=== PATIENT | female | born 1990 ===

== ENCOUNTER 2018-04-05 16:34 | Emergency (ER) | payer OTHER, MEDICAID ==
[2018-04-05 16:34] VITALS: BMI 35.7
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
--- NOTE | 2018-04-05 19:14 | ED PDOC ---
- ECG O2 Sat by Pulse Oximetry: 99 Medical Decision Making Medical Decision Makin:00 -Patient endorsed to me by Dr. Phillips pending lumbar CT. 19:[address] FINDINGS: VERTEBRAE: No fracture. DISCS/SPINAL CANAL/NEURAL FORAMINA: Degenerative changes at L4-5 and L5-S1 with disc herniations at both levels as well as spinal stenosis. There are postoperative changes from left hemilaminectomy at L4-5. SOFT TISSUES: Unremarkable. IMPRESSION: Degenerative changes at L4-5 and L5-S1 with disc herniations at both levels as well as spinal stenosis. There are postoperative changes from left hemilaminectomy at L4-5. 21:25 -Reviewed CT and discussed results with patient. Patient states she has her own orthopedist. Upon provider reevaluation patient is feeling better, is medically stable, and requires no further treatment in the ED at this time. Patient will be discharged home. Counseling was provided and all questions were answered regarding diagnosis and need for follow up with PMD and her own orthopedist. There is agreement to discharge plan. Return if symptoms persist or worsen. Disposition - Clinical Impression Clinical Impression: Acute back pain, Spinal stenosis, Degenerative arthritis of spine - POA Present On Arrival: None - Disposition Referrals: Tenzin Salvador MD [Staff Provider] - Disposition: Routine/Home Disposition Time: 21:10 Condition: IMPROVED Additional Instructions: follow up with your primary doctor in 1-2 days and with your orthopedist DR Box as instructed based on your CT findings return to the ED with any worsening or concerning symptoms Instructions: Spinal Stenosis, Upper Back Pain (DC) Forms: [employer] (Turkmen)
[2018-04-05 21:39] VITALS: O2SAT 99
[2018-04-05 22:08] VITALS: BP 110/78; PULSE 78; RESP 18; TEMP 98
--- NOTE | 2018-04-06 14:33 | CT ---
PROCEDURE: CT Lumbar Spine without contrast HISTORY: pain s/p laminectomy COMPARISON: None. TECHNIQUE: Axial computed tomography images were obtained of the lumbar spine without the use of intravenous contrast. Coronal and sagittal reformatted images were created and reviewed. Radiation dose: Total exam DLP = 1346.25 mGy-cm. This CT exam was performed using one or more of the following dose reduction techniques: Automated exposure control, adjustment of the mA and/or kV according to patient size, and/or use of iterative reconstruction technique. FINDINGS: VERTEBRAE: No fracture. Status post left L4 hemilaminotomy. Normal alignment maintained. DISCS/SPINAL CANAL/NEURAL FORAMINA: L1-2: Unremarkable. L2-3: Unremarkable. L3-4: Unremarkable. L4-5: Extensive disc bulge. No focal herniation appreciated. There is central spinal stenosis. There is moderate bilateral neural foraminal stenosis. L5-S1: Minimal disc bulge. Mild disc bulge. No focal herniation. . Bilateral degenerative facet arthropathy. Moderate/severe bilateral neural foraminal stenosis. No central spinal stenosis. PARASPINAL SOFT TISSUES: Postoperative changes in posterior midline subcutaneous soft tissues. No mass or fluid collection appreciated. OTHER FINDINGS: None. IMPRESSION: Expected postoperative changes. Status post left L4 hemilaminotomy. Large disc bulge at L4-5 with bilateral foraminal stenosis and central spinal stenosis. Minimal disc bulge with bilateral facet arthropathy at L5-S1. Moderate bilateral foraminal stenosis. Preliminary interpretation of this examination was reported by [facility] at 7:40 p.m. on 04/05/2018. There is discordant of this report with the preliminary interpretation. Focal disc herniations are not definitely identified at L4-5 and L5-S1 as reported. Consider further evaluation with magnetic resonance imaging if clinically warranted.
== END 2018-04-05 22:08 | disposition home or self-care (01) ==
LOC: H.ER 16:34
DX: M54.9 Dorsalgia, unspecified (principal); V43.52XA Car driver injured in collision with other type car in traffic accident, initial encounter; Y92.410 Unspecified street and highway as the place of occurrence of the external cause; M48.061 Spinal stenosis, lumbar region without neurogenic claudication; M51.26 Other intervertebral disc displacement, lumbar region
CPT/HCPCS: 72131; 81025; 96372; 99283; J1885